=== PATIENT | male | born 1985 | race Asian ===

== ENCOUNTER → 2019-06-05 10:26 | Outpatient (CLI) | payer MEDICAID, SELFPAY ==
--- NOTE | 2019-06-05 10:27 | CT_ITS ---
PROCEDURE: CT ABDOMEN PELVIS WO/W CON CLINICAL INDICATION: renal cyst Follow-up left renal cyst COMPARISON: ABDPELW/WO CT ABD PELVIS W/WO CONTRAST from 02/27/2017 TECHNIQUE: IV Contrast: 75ML OPTIRAY 350 Oral Contrast none Axial images obtained with sagittal and coronal reformats. All CT scans at the facility use one or more dose reduction, viz: automated exposure control, ma/kV adjustment per patient size (including targeted exams where dose is matched to indication, i.e. head), or iterative reconstruction technique. FINDINGS: LOWER THORAX: No acute finding ABDOMEN & PELVIS: The liver, gallbladder, spleen, adrenal glands, and pancreas have an unremarkable appearance. The there has been no significant change in the cortical cyst involving the upper pole of the left kidney measuring approximately 1.4 cm. No renal or ureteral calculi. No hydronephrosis. No suspicious renal masses. No evidence of appendicitis or diverticulitis. There are few diverticula of the sigmoid colon and descending colon. No intestinal obstruction or free air. No acute bony anomalies. IMPRESSION: 1. Overall no change in the benign-appearing left renal cortical cyst. 2. No acute abdominal or pelvic findings. 3. Colonic diverticulosis without evidence of diverticulitis Dictated by: Basim Barber MD 06/06/2019 09:19 Electronically signed by Basim Barber MD in [facility] 06/06/2019 09:19
== END ==
PROVIDERS: PCP Emergency Medicine; Visit Provider Urology
DX: N28.1 Cyst of kidney, acquired (principal)
CPT/HCPCS: 74178; Q9967

== ENCOUNTER → 2020-06-15 08:08 | Outpatient (CLI) | payer MEDICAID, SELFPAY ==
--- NOTE | 2020-06-15 08:08 | MR_ITS ---
PROCEDURE: MR HEAD/BRAIN WO CON CLINICAL INDICATION: facial nerve Pt c/o rt eye droop [id number]. Pt denies any other symptoms and any recent trauma or injury. COMPARISON: No exams were available for comparison TECHNIQUE: Routine multiplanar multi echo sequences are performed without gadolinium enhancement. FINDINGS: No midline shift, mass effect, intracranial hemorrhage or hydrocephalus is evident. Cerebellopontine angles, cerebellum, midbrain, and brainstem have an unremarkable appearance. Unremarkable appearing white matter. The pituitary, optic chiasm, corpus callosum, and craniocervical junction have an unremarkable appearance. No evidence of acute infarction. No large aneurysms apparent. No mastoid effusion or sinus air-fluid level. IMPRESSION: No acute intracranial findings. Negative MRI of the brain without contrast Dictated by: Basim Barber MD 06/17/2020 11:01 Basim Barber MD in [facility] 06/17/2020 11:01
== END ==
PROVIDERS: PCP Nurse Practitioner Family; Visit Provider Nurse Practitioner Family
DX: G51.9 Disorder of facial nerve, unspecified (principal)
CPT/HCPCS: 70551

== ENCOUNTER 2023-10-01 11:03 | Outpatient (CLI) | payer SELFPAY ==
[2023-10-01 20:37] LABS: Alanine Aminotransferase 26 U/L (12-78); Albumin Level 4.7 g/dl (3.5-5.0); Albumin/Globulin Ratio 1.4 (1.1-1.8); Alkaline Phosphatase 83 U/L (38-126); Anion Gap 17.8 mEq/L (5-15); Aspartate Amino Transferase 35 U/L (17-59); Bilirubin,Total 0.8 mg/dl (0.2-1.3); Blood Urea Nitrogen 10 mg/dl (9-20); Calcium 9.8 mg/dl (8.4-10.2); Carbon Dioxide 24 mmol/L (22.0-30.0); Chloride 101 mmol/L (98-107); Estimated Glomerular Filt Rate 128 ml/min (>60); GFR (African American) 154 ML/MIN (>60); Globulin 3.4 g/dL (1.3-3.2); Glucose 82 mg/dl (74-100); Potassium 4.8 mmoL/L (3.5-5.1); Sodium 138 mmol/L (136-145); Total Protein,Serum 8.1 g/dl (6.3-8.2)
[2023-10-01 20:54] LABS: 25-OH Vitamin D, Total 30.1 ng/mL (30-100)
[2023-10-01 21:07] LABS: Thyroid Stimulating Hormone 1.65 uIU/mL (0.465-4.68)
[2023-10-01 21:50] LABS: Basophils # 0.1 K/mm3 (0-0.2); Basophils % 1.2 % (0.1-2.0); Eosinophils # 0.2 K/mm3 (0.0-0.4); Hematocrit 45.4 % (42.0-52.0); Hemoglobin 15.1 g/dL (14.1-18.0); Lymphocytes # 1.8 K/mm3 (0.7-4.5); Lymphocytes % 22.5 % (10-50); Mean Corpuscular HGB Conc 33.3 g/dL (31.8-35.4); Mean Corpuscular Hemoglobin 30.4 pg (27.0-31.2); Mean Corpuscular Volume 91.4 fl (80-94); Mean Platelet Volume 10.8 fl (7.4-10.4); Monocytes # 0.5 K/mm3 (0.1-1.0); Monocytes % 6.9 % (1.7-9.3); Neutrophils # 5.3 K/mm3 (1.8-7.8); Neutrophils % 67.4 % (37.0-80.0); Platelet Count 226 K/mm3 (142-424); Red Blood Count 4.97 M/mm3 (4.60-6.20); Red Cell Distribution Width 13.7 % (11.5-17.5); White Blood Count 7.9 K/mm3 (4.8-10.8)
== END 2023-10-01 23:59 | disposition home or self-care (01) ==
LOC: LAB.DROPOF 10-02 11:04
PROVIDERS: PCP Internal Medicine; Visit Provider Internal Medicine
DX: K51.90 Ulcerative colitis, unspecified, without complications (principal)
CPT/HCPCS: 80050; 80053; 82306; 84443; 85025